=== PATIENT | female | born 1975 | race Two or more races ===

== ENCOUNTER 2024-12-20 08:22 | Emergency (ER) | payer BC ==
[2024-12-20 08:27] VITALS: RESP 20; TEMP 98.4
[2024-12-20] MEDS ORDERED: DEXAMETHASONE SOD PHOSPHATE 10 MG/1 ML VIAL ONE (08:46)
[2024-12-20] MEDS ORDERED: LIDOCAINE 4% PATCH TP ONE (08:46)
[2024-12-20] MEDS ORDERED: ACETAMINOPHEN 500 MG TABLET (FP) ONE (08:46)
[2024-12-20] MEDS: LIDOCAINE 4% PATCH TP ONE (08:53)
[2024-12-20] MEDS: ACETAMINOPHEN 500 MG TABLET (FP) PO ONE (08:54)
[2024-12-20] MEDS: DEXAMETHASONE SOD PHOSPHATE 10 MG/1 ML VIAL IM ONE (08:54)
[2024-12-20 10:39] VITALS: BP 101/75; PULSE 76
[2024-12-20] MEDS ORDERED: LIDOCAINE PATCH REMOVAL MC SCH (22:00)
== END 2024-12-20 10:40 | disposition home or self-care (01) ==
LOC: JERFT 08:22
PROC: 3E023GC Introduction of Other Therapeutic Substance into Muscle, Percutaneous Approach (ICD-10-PCS; principal; 2024-12-20)
DX: M54.50 Low back pain, unspecified (principal); G89.29 Other chronic pain; R06.7 Sneezing
CPT/HCPCS: 72100-TC-FY; 99284-25; J1100